=== PATIENT | male | born 1960 | race Caucasian/White ===

== ENCOUNTER 2018-09-03 18:40 | Emergency (ER) | payer SELFPAY ==
[~2018-09-03] VITALS: Ht 172.7 cm; Wt 75.7 kg
[2018-09-03 19:03] VITALS: Ht 172.7 cm; Wt 75.7 kg
[2018-09-03 22:51] VITALS: BP 159/95
== END 2018-09-03 22:51 | disposition home or self-care (01) ==
LOC: ED 18:40
DX: S51.811A Laceration without foreign body of right forearm, initial encounter (principal); S41.111A Laceration without foreign body of right upper arm, initial encounter; W54.0XXA Bitten by dog, initial encounter; Y93.89 Activity, other specified; Y92.89 Other specified places as the place of occurrence of the external cause; Y99.8 Other external cause status
CPT/HCPCS: 90715; J0295; J2001; J3010; Q0162

== ENCOUNTER 2018-09-06 13:14 | Emergency (ER) | payer SELFPAY ==
[~2018-09-06] VITALS: Ht 172.7 cm; Wt 77.1 kg
[2018-09-06 13:30] VITALS: Ht 172.7 cm; Wt 77.1 kg
[2018-09-06 13:53] VITALS: BP 157/93
== END 2018-09-06 13:53 | disposition home or self-care (01) ==
LOC: ED 13:14
DX: S41.111D Laceration without foreign body of right upper arm, subsequent encounter (principal); W54.0XXD Bitten by dog, subsequent encounter